=== PATIENT | male | born 1945 | race Caucasian/White ===

== ENCOUNTER 2020-06-20 16:56 | Emergency (ER) | payer OTHER ==
[~2020-06-20 16:56] MED LIST: ASPIR 8181 MG PO; CATAPRES 0.1MG0.1 MG PO; CLOPIDOGREL75 MG PO; COZAAR 25MG TAB25 MG PO; GLUCOPHAGE 500500 MG PO; LOPRESSOR 50 MG50 MG PO; OMNICEF 300 MG300 MG PO; PEPCID40 MG PO; PREDNISONE20 MG PO; PROTONIX 40 MG40 M1 PO; SILDENAFIL20 MG PO; VENTOLIN HFA 66.7 GM INH; ZITHROMAX250 MG PO
== END 2020-06-20 21:00 | disposition home or self-care (01) ==
LOC: ER1 16:56
DX: U07.1 COVID-19 (principal); I25.10 Atherosclerotic heart disease of native coronary artery without angina pectoris; I10 Essential (primary) hypertension; Z95.5 Presence of coronary angioplasty implant and graft
CPT/HCPCS: 93005; 99283; M0239

== ENCOUNTER → 2020-09-05 | Outpatient (CLI) | payer OTHER | LOC: CT 08-25 09:30 | DX: R10.10 Upper abdominal pain, unspecified (principal); K44.9 Diaphragmatic hernia without obstruction or gangrene | CPT/HCPCS: 36415; 82150; 82565; 83690; 84520; Q9967 ==